=== PATIENT | male | born 2005 | race Caucasian/White ===

== ENCOUNTER 2024-08-22 19:05 | Emergency (ER) | payer OTHER ==
[2024-08-22] MEDS: ACETAMINOPHEN TAB 500 MG TAB PO STA (20:21)
[2024-08-22] MEDS: IBUPROFEN 800 MG TAB PO STA (20:21)
--- NOTE | 2024-08-22 20:26 | XR ---
EXAMINATION TYPE: XR elbow complete LT, XR forearm LT DATE OF EXAM: 08/22/2024 8:12 PM INDICATION: Patient age:Male; 18 years old; Reason for study: fall, pain; PHH. pain COMPARISON: None TECHNIQUE: The left elbow was examined in AP, lateral, and oblique projections. The left forearm was examined in AP and lateral projections. FINDINGS: No evidence of any acute osseous pathology, joint dislocation, or soft tissue swelling is n oted. No evidence of joint effusion is present. No radiopaque foreign body. IMPRESSION: No evidence of acute fracture. [facility], , 08/22/2024 8:24 PM
--- NOTE | 2024-08-22 22:06 | ED ---
General Adult HPI - General Chief complaint: Extremity Injury, Upper Stated complaint: IHS-left elbow pain Time Seen by Provider: 08/22/24 19:28 Source: patient, RN notes reviewed, old records reviewed Mode of arrival: ambulatory Limitations: no limitations - History of Present Illness Initial comments: Patient is a 18-year-old male presents emergency department after a fall. Injured his left elbow. Presents for further evaluation. Was at work when it occurred. Not his head or lose consciousness. Presents for further evaluation. - Related Data Allergies Allergy/AdvReac Type Severity Reaction Status Date / Time No Known Allergies Allergy Verified 08/22/24 19:11 Review of Systems ROS Statement: Those systems with pertinent positive or pertinent negative responses have been documented in the HPI. Review of Systems: CONST: Denies fever EYES: Denies blurry vision ENT: Denies nasal congestion C/V: Denies Chest pain RESP: Denies shortness of breath GI: Denies abdominal pain : Denies dysuria SKIN: Denies rash. MSK: Endorses left elbow pain NEURO: Denies headache ROS Other: All systems not noted in ROS Statement are negative. Past Medical History Past Medical History: No Reported History Additional Past Medical History / Comment(s): SVT History of Any Multi-Drug Resistant Organisms: None Reported Past Surgical History: Ablation Past Psychological History: No Psychological Hx Reported Smoking Status: Never smoker Past Alcohol Use History: None Reported Past Drug Use History: None Reported General Exam - General Exam Comments Initial Comments: General: Appears in no acute distress. HEAD: Normal with no signs of head trauma. EYES: EOMI. ENT: Hearing grossly intact. RESPIRATORY: No respiratory distress. C/V: Regular rate and rhythm. ABD: Abdomen is nondistended. EXT: Tenderness palpation of the left elbow. Just distal to the left elbow joint. No obvious deformity palpated. Neurovascular intact throughout. SKIN: No rashes or lesions observed on exposed skin. NEURO: Alert and oriented. Limitations: no limitations Course Vital Signs 08/22/24 08/22/24 19:07 22:16 Temperature 98.1 F 98 F Pulse Rate 100 97 Respiratory 18 17 Rate Blood Pressure 123/94 135/99 O2 Sat by Pulse 98 97 Oximetry Medical Decision Making - Medical Decision Making Was pt. sent in by a medical professional or institution (, PA, [employer], urgent care, hospital, or detention...) When possible be specific @ -No Did you speak to anyone other than the patient for history (EMS, parent, family, police, friend...)? What history was obtained from this source @ -No Did you review nursing and triage notes (agree or disagree)? Why? @ -I reviewed and agree with nursing and triage notes Were old charts reviewed (outside hosp., previous admission, EMS record, old EKG, old radiological studies, urgent care reports/EKG's, detention records)? Report findings @ -No old charts were reviewed Differential Diagnosis (chest pain, altered mental status, abdominal pain women, abdominal pain men, vaginal bleeding, weakness, fever, dyspnea, syncope, headache, dizziness, GI bleed, back pain, seizure, CVA, palpatations, mental hea lth, musculoskeletal)? @ -Differential Musculoskeletal Muscular strain, contusion, ligament sprain, fracture, arthritis, septic arthritis, bursitis, cellulitis, muscle spasm, nerve compression, DVT, arterial occlusion, herpes zoster, electrolyte abnormality, tumor.... This is not meant to be in all inclusive list EKG interpreted by me (3pts min.). @ -None none X-rays interpreted by me (1pt min.). @ -X-ray of the left elbow and forearm negative for any obvious acute fracture or injury. CT interpreted by me (1pt min.). @ -None done U/S interpreted by me (1pt. min.). @ -None done What testing was considered but not performed or refused? (CT, X-rays, U/S, labs)? Why? @ -None What meds were considered but not given or refused? Why? @ -None Did you discuss the management of the patient with other professionals (professionals i.e. , PA, [employer], lab, RT, psych nurse, health and social care teacher, eap clinician, teacher, deportation officer, supportive employment case manager)? Give summary @ -No Was smoking cessation discussed for >3mins.? @ -No Was critical care preformed (if so, how long)? @ -No Were there social determinants of health that impacted care today? How? (Homelessness, low income, unemployed, alcoholism, drug addiction, transportation, low edu. Level, literacy, decrease access to med. care, fdc, rehab)? @ -No Was there de-escalation of care discussed even if they declined (Discuss DNR or withdrawal of care, Hospice)? DNR status @ -No What co-morbidities impacted this encounter? (DM, HTN, Smoking, COPD, CAD, Cancer, CVA, ARF, Chemo, Hep., AIDS, mental health diagnosis, sleep apnea, morbid obesity)? @ -None Was patient admitted / discharged? Hospital course, mention meds given and route, prescriptions, significant lab abnormalities, going to OR and other pertinent info. @ -Presents for left elbow injury at work. Vital signs within acceptable limits. Given Tylenol Motrin. Will obtain x-rays. Exam unremarkable. X-rays negative for any obvious acute traumatic injury. I discussed results with patient. We will still splinted since he is still having significant tenderness at the elbow. He tolerated splinting well and will be placed in a sling. He will be given a starter pack Tylenol 3 for home. Recommended follow-up with orthopedic surgery within the next 1 to 3 days. He was in agreement this plan. I instructed the patient to follow up with their PCP in the next 1-3 days. I provided contact information for follow up with orthopedics. I explained that the patient should return to the emergency department if they experience any worsening symptoms. Strict return precautions were discussed with the patient. The patient expressed understanding of these instructions. I answered all questions that the patient had. The patient was discharged home in good condition with their prescriptions and follow up information. Undiagnosed new problem with uncertain prognosis? @ -No Drug Therapy requiring intensive monitoring for toxicity (Heparin, Nitro, Insulin, Cardizem)? @ -No Were any procedures done? @ -No Diagnosis/symptom? @ -Left elbow sprain Acute, or Chronic, or Acute on Chronic? @ -Acute Uncomplicated (without systemic symptoms) or Complicated (systemic symptoms)? @ -uncomplicated Side effects of treatment? @ -No Exacerbation, Progression, or Severe Exacerbation? @ -No Poses a threat to life or bodily function? How? (Chest pain, [place], [place], pneumonia, PE, COPD, DKA, ARF, appy, cholecystitis, CVA, Diverticulitis, Homicidal, Suicidal, threat to staff... and all critical care pts) @ -Unlikely at this time Disposition Clinical Impression: Sprain of left elbow Disposition: HOME SELF-CARE Condition: Good Instructions (If sedation given, give patient instructions): Elbow Sprain (ED) Additional Instructions: Follow-up with orthopedic surgery in the next 1 to 3 days for repeat x-rays. Your x-rays today did not show any obvious fracture but sometimes there is a delay in seeing an x-ray. Return to the ER for any worsening symptoms or concerns. Is patient prescribed a controlled substance at d/c from ED?: No Referrals: Sergey Oviedo MD [Primary Care Provider] - 1-2 days Sudheer Reynoso MD [STAFF PHYSICIAN] - 1-2 days Time of Disposition: 22:06
[2024-08-22 22:49] VITALS: BP 135/99; PULSE 97; RESP 17; TEMP 98
[2024-08-22] MEDS: ACET/COD 300 MG/30 MG STARTER PACK 6 TAB BTL PO STA (22:49)
== END 2024-08-22 22:51 | disposition home or self-care (01) ==
LOC: EC 19:05
DX: S53.402A Unspecified sprain of left elbow, initial encounter (principal); W19.XXXA Unspecified fall, initial encounter; Y99.0 Civilian activity done for income or pay
CPT/HCPCS: 99283

== ENCOUNTER → 2024-09-06 | Outpatient (CLI) | payer OTHER ==
--- NOTE | 2024-09-12 13:44 | MR ---
EXAMINATION TYPE: MR elbow LT wo con DATE OF EXAM: 09/06/2024 12:22 PM COMPARISON: Plain film. CLINICAL INDICATION: Male, 18 years old with history of S53.402D SPRAIN OF LEFT ELBOW, SUBSEQUENT ENC OUNTE; PHH, left elbow pain and limited movement for 15 days due to tripping on pallet and falling on hands at work TECHNIQUE: Multiplanar multi-sequence imaging was performed of the elbow joint. No gadolinium given. FINDINGS: Ligaments and tendons:. The lateral ulnar collateral ligament, annular ligament, and late ral collateral ligament are intact. The common flexor tendon, biceps tendon, brachialis tendon, and triceps tendon are within normal limits. Osseous structures: High PD signal edema within the radial head with curvilinear low T1 signal line. The remaining bone marrow signal intensity is unremarkable. A small amount of joint fluid is noted. Small joint effusion present. IMPRESSION: 1. Acute/subacute fracture of the radial neck/head without definitive intra-articular extension. 2. No evidence of ligament tear. 3. [facility], , 09/12/2024 1:42 PM
== END | disposition home or self-care (01) ==
LOC: RADMRIMAIN 11:36
PROVIDERS: ATTEND Emergency Medicine
DX: S52.132D Displaced fracture of neck of left radius, subsequent encounter for closed fracture with routine healing (principal); W01.0XXD Fall on same level from slipping, tripping and stumbling without subsequent striking against object, subsequent encounter